=== PATIENT | female | born 1985 | race Caucasian/White ===

== ENCOUNTER 2017-05-22 03:06 | Emergency (ER) | payer OTHER ==
[~2017-05-22] VITALS: Ht 154.9 cm; Wt 80.8 kg
[2017-05-22 03:11] VITALS: Ht 154.9 cm; Wt 80.8 kg
[2017-05-22 04:02] VITALS: BP 102/62
== END 2017-05-22 04:02 | disposition home or self-care (01) ==
LOC: ED 03:06
DX: H66.92 Otitis media, unspecified, left ear (principal)